=== PATIENT | male | born 1945 | race Caucasian/White ===

== ENCOUNTER 2016-12-22 07:45 | Emergency (ER) | payer BC, MEDICARE ==
--- NOTE | 2016-12-22 09:06 | EDM.PDOC ---
ED HPI GENERAL MEDICAL PROBLEM - General Chief Complaint: Chest Pain Stated Complaint: CHEST PAIN Time Seen by Provider: 12/22/16 07:50 Source of Information: Reports: Patient, Family History Limitations: Reports: No Limitations - History of Present Illness INITIAL COMMENTS - FREE TEXT/NARRATIVE: 71 y.o.w.f came to the ed due to sudden onset of CP this am, lasting for a few seconds only. No N/V/D or any other acute medical issue. No trauma. Pt took 1/2 tabl or his metoprolol. His vital were all nl on arrival to the ed. Pt stated he is now in his usual state of health. Onset: Today Onset Date: 12/22/16 Onset Time: 07:00 Duration: Minutes: (seconds) Location: Reports: Chest Quality: Reports: Burning Severity: Mild Improves with: Reports: Immobilization Worsens with: Reports: Movement Associated Symptoms: Reports: Chest Pain (for seconds) - Related Data Allergies Allergy/AdvReac Type Severity Reaction Status Date / Time bee sting Allergy Swelling Uncoded 12/22/16 08:14 Home Meds: Home Meds NK [No Known Home Meds] 12/22/16 [History] Past Medical History Cardiovascular History: Reports: Other (See Below) Other Cardiovascular History: irregular heart beat Musculoskeletal History: Reports: Other (See Below) Other Musculoskeletal History: stress fx of foot - Past Surgical History GI Surgical History: Reports: Hernia, Inguinal Social & Family History - Tobacco Use Smoking Status *Q: Never Smoker Second Hand Smoke Exposure: No - Caffeine Use Caffeine Use: Reports: Coffee - Recreational Drug Use Recreational Drug Use: No ED ROS GENERAL - Review of Systems Review Of Systems: See Below Constitutional: Reports: No Symptoms HEENT: Reports: No Symptoms Respiratory: Reports: No Symptoms Cardiovascular: Reports: No Symptoms Endocrine: Reports: No Symptoms GI/Abdominal: Reports: No Symptoms : Reports: No Symptoms Musculoskeletal: Reports: No Symptoms Skin: Reports: No Symptoms Neurological: Reports: No Symptoms Psychiatric: Reports: No Symptoms Hematologic/Lymphatic: Reports: No Symptoms Immunologic: Reports: No Symptoms ED EXAM, GENERAL - Physical Exam Exam: See Below Exam Limited By: No Limitations General Appearance: Alert, WD/WN, No Apparent Distress Eye Exam: Bilateral Eye: Normal Inspection Ears: Normal External Exam, Normal Canal Ear Exam: Bilateral Ear: Auricle Normal Nose: Normal Inspection, Normal Mucosa, No Blood Throat/Mouth: Normal Inspection, Normal Lips Head: Atraumatic, Normocephalic, Facial Swelling Neck: Normal Inspection, Supple Respiratory/Chest: No Respiratory Distress, Lungs Clear, Normal Breath Sounds, No Accessory Muscle Use, Chest Non-Tender Cardiovascular: Normal Peripheral Pulses, Regular Rate, Rhythm, No Edema, No Gallop Peripheral Pulses: 1+: Femoral (L), Femoral (R) GI/Abdominal: Normal Bowel Sounds, Soft, Non-Tender, No Organomegaly (Male) Exam: No Hernia Rectal (Males) Exam: Deferred Back Exam: Normal Inspection, Full Range of Motion Extremities: Normal Inspection, Normal Range of Motion, Non-Tender Neurological: Alert, Oriented, CN II-XII Intact, Normal Cognition, Normal Gait Psychiatric: Normal Affect, Normal Mood Skin Exam: Warm, Dry, Intact, Normal Color, No Rash Lymphatic: No Adenopathy EKG INTERPRETATION EKG Date: 12/22/16 Time: 08:10 Rhythm: NSR Rate (Beats/Min): 56 [place]: Normal P-Wave: Present QRS: Normal ST-T: Normal QT: Normal Comparison: NA - No Prior EKG Course - Vital Signs Text/Narrative:: 71 y.o.w.f came to the ed due to sudden onset of CP this am, lasting for a few seconds only. No N/V/D or any other acute medical issue. No trauma. Pt took 1/2 tabl or his metoprolol. His vital were all nl on arrival to the ed. Pt stated he is now in his usual state of health. PE: WNWD w m NAD Labs: Cardiac W/U neg Imaging: NAD Impression: Atypical CP Tx: None Plan: D/C with instructions Last Recorded V/S: Last Vital Signs Temp 36.6 C 12/22/16 07:50 Pulse 61 12/22/16 09:30 Resp 14 12/22/16 09:30 BP 137/86 12/22/16 09:30 Pulse Ox 99 12/22/16 09:30 - Orders/Labs/Meds Labs: Laboratory Tests 12/22/16 12/22/16 12/22/16 Range/Units 08:25 08:25 08:25 WBC 9.1 (4.5-12.0) X10-3/uL RBC 4.34 (4.30-5.75) x10(6)uL Hgb 13.8 (11.5-15.5) g/dL Hct 40.0 (30.0-51.3) % MCV 92.2 (80-96) fL MCH 31.7 (27.7-33.6) pg MCHC 34.4 (32.2-35.4) g/dL RDW 13.3 (11.5-15.5) % Plt Count 227 (125-369) X10(3)uL MPV 8.0 (7.4-10.4) fL Neut % (Auto) 78.0 (46-82) % Lymph % (Auto) 14.0 (13-37) % [place] % (Auto) 6.5 (4-12) % Eos % (Auto) 1 (1.0-5.0) % Baso % (Auto) 0 (0-2) % Neut # (Auto) 7.1 (1.6-8.3) # Lymph # (Auto) 1.3 (0.6-5.0) # [place] # (Auto) 0.6 (0.0-1.3) # Eos # (Auto) 0.1 (0.0-0.8) # Baso # (Auto) 0.0 (0.0-0.2) # PT 9.7 (8.7-11.1) INR 0.96 (0.89-1.13) Sodium 137 (135-145) mmol/L Potassium 4.3 (3.5-5.3) mmol/L Chloride 103 (100-110) mmol/L Carbon Dioxide 28 (23-29) mmol/L BUN 18 (8-23) mg/dL Creatinine 1.0 (0.6-1.3) mg/dL Est Cr Clr Drug Dosing 66.77 mL/min Estimated GFR (MDRD) > 60 (>60) BUN/Creatinine Ratio 18.0 (9-20) Glucose 139 H (80-116) mg/dL Calcium 9.1 (8.6-10.2) mg/dL Troponin I (0.02-0.06) NG/ML B-Natriuretic Peptide (0-100) pg/mL 12/22/16 12/22/16 Range/Units 08:25 08:25 WBC (4.5-12.0) X10-3/uL RBC (4.30-5.75) x10(6)uL Hgb (11.5-15.5) g/dL Hct (30.0-51.3) % MCV (80-96) fL MCH (27.7-33.6) pg MCHC (32.2-35.4) g/dL RDW (11.5-15.5) % Plt Count (125-369) X10(3)uL MPV (7.4-10.4) fL Neut % (Auto) (46-82) % Lymph % (Auto) (13-37) % [place] % (Auto) (4-12) % Eos % (Auto) (1.0-5.0) % Baso % (Auto) (0-2) % Neut # (Auto) (1.6-8.3) # Lymph # (Auto) (0.6-5.0) # [place] # (Auto) (0.0-1.3) # Eos # (Auto) (0.0-0.8) # Baso # (Auto) (0.0-0.2) # PT (8.7-11.1) INR (0.89-1.13) Sodium (135-145) mmol/L Potassium (3.5-5.3) mmol/L Chloride (100-110) mmol/L Carbon Dioxide (23-29) mmol/L BUN (8-23) mg/dL Creatinine (0.6-1.3) mg/dL Est Cr Clr Drug Dosing mL/min Estimated GFR (MDRD) (>60) BUN/Creatinine Ratio (9-20) Glucose (80-116) mg/dL Calcium (8.6-10.2) mg/dL Troponin I < 0.01 L (0.02-0.06) NG/ML B-Natriuretic Peptide 32 (0-100) pg/mL Departure - Departure Time of Disposition: 09:57 Disposition: Home, Self-Care 01 Condition: Good Clinical Impression: Atypical chest pain - Discharge Information Referrals: Jignesh Arana MD [Primary Care Provider] - Forms: ED Department Discharge Additional Instructions: Please follow up with your PMD, come back if your symptoms get worse acutely
[2016-12-22 10:18] VITALS: BP 137/86
--- NOTE | 2016-12-22 10:48 | CR ---
INDICATION: Chest pain. CHEST: An AP upright portable view of the chest was obtained. The heart appeared normal in size and shape. There appears to be some minimal calcification in the arch of the aorta. There are overlying EKG leads. A definite active infiltrate or effusion was not identified. IMPRESSION: No acute process. MTDD
== END 2016-12-22 10:03 | disposition home or self-care (01) ==
LOC: FB.ED 07:45
DX: R07.89 Other chest pain (principal); Z98.890 Other specified postprocedural states; Z91.030 Bee allergy status
CPT/HCPCS: 36415; 71010; 80048; 83880; 84484; 85025; 85610; 93005; 99285

== ENCOUNTER 2018-05-14 21:20 | Emergency (ER) | payer BC ==
[2018-05-14] MEDS ORDERED: Aspirin 81 MG Tab.Chew PO ONE (21:28)
[2018-05-14 21:52] VITALS: BP 156/76
--- NOTE | 2018-05-14 22:59 | EDM.PDOC ---
ED HPI GENERAL MEDICAL PROBLEM - General Chief Complaint: Chest Pain Stated Complaint: CHEST PAIN Time Seen by Provider: 05/14/18 21:20 Source of Information: Reports: Patient, Family History Limitations: Reports: No Limitations - History of Present Illness INITIAL COMMENTS - FREE TEXT/NARRATIVE: 73 y.o.w.min prev healthy condition, with a h/o dizziness, came with is to the ed because of c/p mainly his post left and right shoulder. Occ it moved to ant chest. No trauma, no CAD risc factors, Pt walks every day 2 miles. No N/V/D or any other acute med Issues. BP 156/75 RR 12 Pulse ox 96% on RA Pulse 73 Temp 36.9 Onset Date: 05/13/18 Onset Time: 09:00 Duration: Hour(s):, Day(s):, Intermittent Location: Reports: Chest Quality: Reports: Dull Severity: Mild Improves with: Reports: Rest Worsens with: Reports: Movement Context: Reports: Sick Contact Treatments TRIMMER HELPER: Reports: Other (see below) (none) shoulders and back Pain Score (Numeric/FACES): 1 - Related Data Allergies Allergy/AdvReac Type Severity Reaction Status Date / Time bee sting Allergy Swelling Uncoded 05/14/18 21:41 Home Meds: Home Meds NK [No Known Home Meds] 12/22/16 [History] Past Medical History Cardiovascular History: Reports: Other (See Below) Other Cardiovascular History: irregular heart beat Musculoskeletal History: Reports: Other (See Below) Other Musculoskeletal History: stress fx of foot - Past Surgical History GI Surgical History: Reports: Hernia, Inguinal Social & Family History - Family History Family Medical History: Noncontributory - Tobacco Use Smoking Status *Q: Never Smoker - Caffeine Use Caffeine Use: Reports: Coffee Caffeine Use Comment: 6 cups a day - Recreational Drug Use Recreational Drug Use: No ED ROS GENERAL - Review of Systems Review Of Systems: See Below Constitutional: Reports: No Symptoms HEENT: Reports: No Symptoms Respiratory: Reports: No Symptoms Cardiovascular: Reports: Chest Pain Endocrine: Reports: No Symptoms GI/Abdominal: Reports: No Symptoms : Reports: No Symptoms Musculoskeletal: Reports: No Symptoms Skin: Reports: No Symptoms Neurological: Reports: No Symptoms Psychiatric: Reports: No Symptoms Hematologic/Lymphatic: Reports: No Symptoms Immunologic: Reports: No Symptoms ED EXAM, GENERAL - Physical Exam Exam: See Below Exam Limited By: No Limitations General Appearance: Alert, WD/WN, Mild Distress Eye Exam: Bilateral Eye: Normal Inspection Ears: Normal External Exam Ear Exam: Bilateral Ear: Auricle Normal Nose: Normal Inspection, Normal Mucosa, No Blood Throat/Mouth: Normal Inspection, Normal Lips, Normal Voice, No Airway Compromise Head: Atraumatic, Normocephalic Neck: Normal Inspection, Supple, Non-Tender, Full Range of Motion Respiratory/Chest: No Respiratory Distress, Lungs Clear, Normal Breath Sounds, Chest Non-Tender Cardiovascular: Normal Peripheral Pulses, Regular Rate, Rhythm, No Edema, No Gallop, No JVD, No Murmur, No Rub Peripheral Pulses: 2+: Radial (L) GI/Abdominal: Normal Bowel Sounds, Soft, Non-Tender, No Organomegaly, No Distention, No Abnormal Bruit, No Mass, Pelvis Stable (Male) Exam: Deferred Rectal (Males) Exam: Deferred Back Exam: Normal Inspection, Full Range of Motion Extremities: Normal Inspection, Normal Range of Motion, Non-Tender, No Pedal Edema, Normal Capillary Refill Neurological: Alert, Oriented, CN II-XII Intact, Normal Cognition, Normal Gait, No Motor/Sensory Deficits Psychiatric: Normal Affect, Normal Mood Skin Exam: Warm, Dry, Intact, Normal Color, No Rash Lymphatic: No Adenopathy EKG INTERPRETATION EKG Date: 05/14/18 Time: 21:40 Rhythm: NSR Rate (Beats/Min): 63 [place]: Normal P-Wave: Present QRS: Normal ST-T: Normal QT: Normal Comparison: NA - No Prior EKG Course - Vital Signs Text/Narrative:: 73 y.o.w.min prev healthy condition, with a h/o dizziness, came with is to the ed because of c/p mainly his post left and right shoulder. Occ it moved to ant chest. No trauma, no CAD risckfactors, Pt walks every day 2 miles. No N/V/D or any other acute med Issues. BP 156/75 RR 12 Pulse ox 96% on RA Pulse 73 Temp 36.9 PE: WNWD WM, in NAD c/o chest discomfort and some time dizziness, NL FN and FF test Labs: CBC BMP nl except Glc 123.BUN is 20 Troponin 0.017 Imaging: CXR: NAD Impression: A Typical chest pain, Dizziness, cause not determined Tx: ASA Reexam: Improved Plan: D/C with instructions Last Recorded V/S: Last Vital Signs Temp 36.7 C 05/14/18 23:05 Pulse 73 05/14/18 21:20 Resp 12 05/14/18 21:20 BP 156/76 H 05/14/18 21:20 Pulse Ox 96 05/14/18 21:20 - Orders/Labs/Meds Orders: Active Orders 24 hr Category Date Time Status EKG Documentation Completion [RC] ASDIRECTED Care 05/14/18 21:29 Active Chest 1V Frontal [CR] Stat Exams 05/14/18 21:28 Taken EKG 12 Lead [EK] Routine Ther 05/14/18 21:28 Ordered Labs: Laboratory Tests 05/14/18 05/14/18 05/14/18 Range/Units 21:35 21:35 21:35 WBC 8.5 (4.5-12.0) X10-3/uL RBC 4.49 (4.30-5.75) x10(6)uL Hgb 13.8 (11.5-15.5) g/dL Hct 41.6 (30.0-51.3) % MCV 92.7 (80-96) fL MCH 30.7 (27.7-33.6) pg MCHC 33.2 (32.2-35.4) g/dL RDW 12.4 (11.5-15.5) % Plt Count 256 (125-369) X10(3)uL MPV 8.4 (7.4-10.4) fL Neut % (Auto) 69.0 (46-82) % Lymph % (Auto) 20.6 (13-37) % [place] % (Auto) 8.0 (4-12) % Eos % (Auto) 2 (1.0-5.0) % Baso % (Auto) 1 (0-2) % Neut # (Auto) 5.9 (1.6-8.3) # Lymph # (Auto) 1.7 (0.6-5.0) # [place] # (Auto) 0.7 (0.0-1.3) # Eos # (Auto) 0.2 (0.0-0.8) # Baso # (Auto) 0.0 (0.0-0.2) # PT 9.6 (8.7-11.1) INR 0.99 (0.89-1.13) Sodium 138 (135-145) mmol/L Potassium 3.6 (3.5-5.3) mmol/L Chloride 104 (100-110) mmol/L Carbon Dioxide 26 (21-32) mmol/L BUN 20 H (7-18) mg/dL Creatinine 1.1 (0.70-1.30) mg/dL Est Cr Clr Drug Dosing TNP Estimated GFR (MDRD) > 60 (>60) BUN/Creatinine Ratio 18.2 (9-20) Glucose 128 H (80-116) mg/dL Calcium 8.7 (8.6-10.2) mg/dL Troponin I (<0.017-0.056) ng/mL 05/14/18 Range/Units 21:35 WBC (4.5-12.0) X10-3/uL RBC (4.30-5.75) x10(6)uL Hgb (11.5-15.5) g/dL Hct (30.0-51.3) % MCV (80-96) fL MCH (27.7-33.6) pg MCHC (32.2-35.4) g/dL RDW (11.5-15.5) % Plt Count (125-369) X10(3)uL MPV (7.4-10.4) fL Neut % (Auto) (46-82) % Lymph % (Auto) (13-37) % [place] % (Auto) (4-12) % Eos % (Auto) (1.0-5.0) % Baso % (Auto) (0-2) % Neut # (Auto) (1.6-8.3) # Lymph # (Auto) (0.6-5.0) # [place] # (Auto) (0.0-1.3) # Eos # (Auto) (0.0-0.8) # Baso # (Auto) (0.0-0.2) # PT (8.7-11.1) INR (0.89-1.13) Sodium (135-145) mmol/L Potassium (3.5-5.3) mmol/L Chloride (100-110) mmol/L Carbon Dioxide (21-32) mmol/L BUN (7-18) mg/dL Creatinine (0.70-1.30) mg/dL Est Cr Clr Drug Dosing Estimated GFR (MDRD) (>60) BUN/Creatinine Ratio (9-20) Glucose (80-116) mg/dL Calcium (8.6-10.2) mg/dL Troponin I < 0.017 L (<0.017-0.056) ng/mL Meds: Medications Discontinued Medications Generic Name Dose Route Start Last Admin Trade Name Ravi PRN Reason Stop Dose Admin Aspirin 324 mg 05/14/18 21:28 05/14/18 21:30 Aspirin PO 05/14/18 21:29 324 mg ONETIME ONE Administration Departure - Departure Time of Disposition: 22:56 Disposition: Home, Self-Care 01 Condition: Good Clinical Impression: Atypical chest pain Instructions: Nonspecific Chest Pain, [id number] Referrals: Jignesh Arana MD [Primary Care Provider] - Forms: ED Department Discharge Additional Instructions: Please take Motrin for pain, please increase water intake, please f/u with your PMD. Please come back if your symptoms get worse acutely - My Orders Last 24 Hours: My Active Orders 05/14/18 21:28 Chest 1V Frontal [CR] Stat EKG 12 Lead [EK] Routine 05/14/18 21:29 EKG Documentation Completion [RC] ASDIRECTED - Assessment/Plan Last 24 Hours: My Active Orders 05/14/18 21:28 Chest 1V Frontal [CR] Stat EKG 12 Lead [EK] Routine 05/14/18 21:29 EKG Documentation Completion [RC] ASDIRECTED
--- NOTE | 2018-05-15 12:38 | CR ---
INDICATION: Chest pain. CHEST ONE VIEW: AP upright portable view of the chest was obtained on 05/14/18 and compared with 12/22/16 revealing an appearance suggesting increased heart size on the current study. Overlying EKG leads are noted. A mild dextroconvex scoliosis of the upper middle thoracic spine is noted. A definite active infiltrate or effusion was not identified. IMPRESSION: Probable ASHD with possible increase in heart size compared with previous study. MTDD
== END 2018-05-14 23:05 | disposition home or self-care (01) ==
LOC: FB.ED 21:20
DX: R07.89 Other chest pain (principal); R42 Dizziness and giddiness; Z91.030 Bee allergy status
CPT/HCPCS: 36415; 71045; 80048; 84484; 85025; 85610; 93005; 99285; A9270

== ENCOUNTER 2018-10-04 18:12 | Inpatient (IN) | payer MEDICARE, BC ==
[2018-10-04] MEDS ORDERED: Acetaminophen 500 MG Tab PO ONE (18:30)
--- NOTE | 2018-10-04 18:52 | EDM.PDOC ---
ED HPI GENERAL MEDICAL PROBLEM - General Chief Complaint: Fever Stated Complaint: DIZZY Time Seen by Provider: 10/04/18 18:35 Source of Information: Reports: Patient History Limitations: Reports: No Limitations - History of Present Illness INITIAL COMMENTS - FREE TEXT/NARRATIVE: Patient presents today with his with concerns for feeling lightheaded, has fallen a couple times today, his notes that maybe he was confused at one point. He reports that he has been feeling unwell for the past couple of days, thought he maybe overdid it in the garage 3 days ago. Slight decrease in appetite as well. Today at home was noted to have a fever of 101, also has a fever on arrival here. He is otherwise sitting up and able to give me a complete history. That yesterday he had some acute onset low back pain across the back of his hips and in the SI joint area. He has not noticed pain like this before, but again thought it was from working in his garage. He has been constipated recently, and noted that his urine smelled funny and he has been drinking more water the last couple of days. He has had no cough, some nasal congestion and wondered if he might have a sinus infection, but right now no headache, no pain in his ears, no sore throat. He does not feel short of breath, although was lightheaded and went forward down onto the floor 2-3 times today (did not tell his ). No known exposure to ticks, hasn't spent any problems time outside. Generally healthy, takes 12.5 of metoprolol twice daily for blood pressure and states there was maybe an arrhythmia a number of years ago. Also takes a baby aspirin as well as a vitamin. No history of diabetes, COPD, or any other heart problems. Nonsmoker, no alcohol use, no drug use. Lower back Pain Score (Numeric/FACES): 4 - Related Data Allergies Allergy/AdvReac Type Severity Reaction Status Date / Time bee sting Allergy Swelling Uncoded 10/04/18 18:27 Home Meds: Home Meds Aspirin [Ecotrin EC] 81 mg PO DAILY 10/04/18 [History] Metoprolol Tartrate [Lopressor] 12.5 mg PO BID 10/04/18 [History] Multivitamin [Multivitamins] 1 each PO DAILY 10/04/18 [History] Rosuvastatin [Crestor] 10 mg PO BEDTIME 10/04/18 [History] Past Medical History Cardiovascular History: Reports: High Cholesterol, Hypertension Other Cardiovascular History: irregular heart beat Musculoskeletal History: Reports: Osteoarthritis, Other (See Below) Other Musculoskeletal History: stress fx of foot - Infectious Disease History Infectious Disease History: Reports: Chicken Pox, Measles, Mumps - Past Surgical History HEENT Surgical History: Reports: Cataract Surgery GI Surgical History: Reports: Hernia, Inguinal Musculoskeletal Surgical History: Reports: None Social & Family History - Family History Family Medical History: Noncontributory Cardiac: Reports: CAD Endocrine/Metabolic: Reports: Diabetes, type II - Tobacco Use Smoking Status *Q: Never Smoker - Caffeine Use Caffeine Use: Reports: Coffee, Soda Caffeine Use Comment: 6 cups a day - Alcohol Use Alcohol Use History: No - Recreational Drug Use Recreational Drug Use: No - Living Situation & Occupation Living situation: Reports: Occupation: Retired ED ROS GENERAL - Review of Systems Review Of Systems: See Below Constitutional: Reports: Fever, Chills, Malaise, Weakness, Fatigue HEENT: Reports: Rhinitis. Denies: Ear Pain, Eye Pain, Sinus Problem, Throat Pain Respiratory: Denies: Shortness of Breath, Wheezing, Pleuritic Chest Pain, Cough Cardiovascular: Reports: Lightheadedness. Denies: Chest Pain, Dyspnea on Exertion, Palpitations Endocrine: Reports: Fatigue GI/Abdominal: Reports: Constipation, Decreased Appetite. Denies: Abdominal Pain , Black Stool, Diarrhea, Vomiting : Reports: Frequency. Denies: Discharge, Flank Pain, Urgency Musculoskeletal: Reports: Back Pain Skin: Denies: Rash, Wound Neurological: Denies: Headache, Numbness, Tingling, Weakness, Gait Disturbance Psychiatric: Reports: No Symptoms Hematologic/Lymphatic: Reports: Easy Bruising. Denies: Easy Bleeding ED EXAM, GENERAL - Physical Exam Exam: See Below Free Text/Narrative:: Gen.: Alert, extremely pleasant and does not appear toxic or in acute distress. Tympanic members are clear bilaterally with normal light reflex and there is no mastoid tenderness. Throat is without erythema, mucous murmurs are moist and there is no tonsillar enlargement or exudates. No cervical lymphadenopathy and no sinus tenderness. Neck is freely movable. Pupils are equal and reactive and conjunctiva are clear. Heart is regular rate and rhythm and I do not hear murmur , lungs are clear throughout with very minimal amount of expiratory wheeze at the very end of expiration. No costovertebral angle tenderness, no midline spinous process tenderness, vague pain in SI joint area. Abdomen positive bowel sounds, soft nondistended nontender with only very slight discomfort in palpation in the left lower quadrant. Peripheral pulses +2 and there is no lower extremity edema. Strength is equal bilaterally and he has relatively normal sensation, gait is normal. A few bruises noted on his arms, but no open lesions or wounds. No joint swelling. Course - Vital Signs Text/Narrative:: Initial evaluation completed, sepsis labs drawn, will have nursing place a saline lock. Fever of 101 and slightly elevated respiratory rate but otherwise nontoxic appearing and not diaphoretic. Only focal symptom is possibly urine and some vague low back pain, and fatigue. Lungs clear, no headache, no obvious URI symptoms, abdomen soft nontender. Labs ordered as well as urinalysis, blood cultures drawn. call received from lab regarding urinalysis meeting criteria for culture, + nitrates, + leukocyte esterace. Also called regarding CRP 22.6. Rest of labs still pending. Last Recorded V/S: Last Vital Signs Temp 38.8 C H 10/04/18 18:14 Pulse 106 H 10/04/18 18:14 Resp 26 H 10/04/18 18:14 BP 120/70 10/04/18 18:14 Pulse Ox 98 10/04/18 18:14 - Orders/Labs/Meds Orders: Active Orders 24 hr Category Date Time Status CBC WITH AUTO DIFF [HEME] Routine Lab 10/04/18 18:30 Results CULTURE BLOOD [BC] Urgent Lab 10/04/18 18:30 Received CULTURE BLOOD [BC] Urgent Lab 10/04/18 18:35 Received cefTRIAXone [Rocephin] Med 10/04/18 19:15 Ordered 1 gm IVPUSH Q24H Blood Culture x2 Reflex Set [OM.PC] Urgent Oth 10/04/18 18:30 Ordered Labs: Laboratory Tests 10/04/18 10/04/18 10/04/18 Range/Units 18:29 18:30 18:30 WBC 17.4 H (4.5-12.0) X10-3/uL RBC 4.27 L (4.30-5.75) x10(6)uL Hgb 13.4 L (13.5-17.8) g/dL Hct 39.3 (30.0-51.3) % MCV 92.1 (80-96) fL MCH 31.4 (27.7-33.6) pg MCHC 34.1 (32.2-35.4) g/dL RDW 13.4 (11.5-15.5) % Plt Count 174 (125-369) X10(3)uL MPV 8.7 (7.4-10.4) fL Add Manual Diff Yes Sodium 135 (135-145) mmol/L Potassium 4.0 (3.5-5.3) mmol/L Chloride 99 L D (100-110) mmol/L Carbon Dioxide 22 (21-32) mmol/L BUN 22 H (7-18) mg/dL Creatinine 1.3 (0.70-1.30) mg/dL Est Cr Clr Drug Dosing 48.23 mL/min Estimated GFR (MDRD) 54 L (>60) BUN/Creatinine Ratio 16.9 (9-20) Glucose 168 H (80-116) mg/dL Lactic Acid (0.4-2.2) mmol/L Calcium 9.0 (8.6-10.2) mg/dL Total Bilirubin 1.3 (0.1-1.3) mg/dL AST 28 H (5-25) IU/L ALT 39 H (12-36) U/L Alkaline Phosphatase 97 (56-112) IU/L C-Reactive Protein (0.5-0.9) mg/dL Total Protein 7.3 (6.0-8.0) g/dL Albumin 3.1 L (3.2-4.6) g/dL Globulin 4.2 g/dL Albumin/Globulin Ratio 0.7 Urine Color [place] (YELLOW) Urine Appearance Cloudy (CLEAR) Urine pH 5.0 (5.0-6.5) Ur Specific [place] 1.020 (1.010-1.025) Urine Protein 30 H (NEGATIVE) mg/dL Urine Glucose (UA) Normal (NORMAL) mg/dL Urine Ketones 15 H (NEGATIVE) mg/dL Urine Occult Blood Large H (NEGATIVE) Urine Nitrite Positive H (NEGATIVE) Urine Bilirubin Small H (NEGATIVE) Urine Urobilinogen 8 H (NEGATIVE) mg/dL Ur Leukocyte Esterase Large H (NEGATIVE) Urine RBC >100 H (0-5) Urine WBC >100 H (0-5) Ur Squamous Epith Cells Few H (NS,R,O) Urine Bacteria Many H (NS) 10/04/18 10/04/18 Range/Units 18:30 18:30 WBC (4.5-12.0) X10-3/uL RBC (4.30-5.75) x10(6)uL Hgb (13.5-17.8) g/dL Hct (30.0-51.3) % MCV (80-96) fL MCH (27.7-33.6) pg MCHC (32.2-35.4) g/dL RDW (11.5-15.5) % Plt Count (125-369) X10(3)uL MPV (7.4-10.4) fL Add Manual Diff Sodium (135-145) mmol/L Potassium (3.5-5.3) mmol/L Chloride (100-110) mmol/L Carbon Dioxide (21-32) mmol/L BUN (7-18) mg/dL Creatinine (0.70-1.30) mg/dL Est Cr Clr Drug Dosing mL/min Estimated GFR (MDRD) (>60) BUN/Creatinine Ratio (9-20) Glucose (80-116) mg/dL Lactic Acid 1.7 (0.4-2.2) mmol/L Calcium (8.6-10.2) mg/dL Total Bilirubin (0.1-1.3) mg/dL AST (5-25) IU/L ALT (12-36) U/L Alkaline Phosphatase (56-112) IU/L C-Reactive Protein 22.6 H* (0.5-0.9) mg/dL Total Protein (6.0-8.0) g/dL Albumin (3.2-4.6) g/dL Globulin g/dL Albumin/Globulin Ratio Urine Color (YELLOW) Urine Appearance (CLEAR) Urine pH (5.0-6.5) Ur Specific [place] (1.010-1.025) Urine Protein (NEGATIVE) mg/dL Urine Glucose (UA) (NORMAL) mg/dL Urine Ketones (NEGATIVE) mg/dL Urine Occult Blood (NEGATIVE) Urine Nitrite (NEGATIVE) Urine Bilirubin (NEGATIVE) Urine Urobilinogen (NEGATIVE) mg/dL Ur Leukocyte Esterase (NEGATIVE) Urine RBC (0-5) Urine WBC (0-5) Ur Squamous Epith Cells (NS,R,O) Urine Bacteria (NS) Meds: Medications Discontinued Medications Generic Name Dose Route Start Last Admin Trade Name Ravi PRN Reason Stop Dose Admin Acetaminophen 1,000 mg 10/04/18 18:30 10/04/18 18:40 Tylenol Extra Strength PO 10/04/18 18:31 1,000 mg ONETIME ONE Administration - Re-Assessments/Exams Free Text/Narrative Re-Assessment/Exam: 10/04/18 18:59 ordered 1gm ceftriaxone for presumed UTI based on urine. sign out given to oncoming physician Dr. Holland. rest of labs still pending; may or may not need admission. 10/04/18 19:00 10/04/18 19:04 10/04/18 19:06 Departure - Departure Time of Disposition: 19:06 Disposition: Still A Patient 30 Condition: Undetermined Clinical Impression: Febrile urinary tract infection - Discharge Information *PRESCRIPTION DRUG MONITORING PROGRAM REVIEWED*: Not Applicable *COPY OF PRESCRIPTION DRUG MONITORING REPORT IN PATIENT BRIGIDO: Not Applicable - My Orders Last 24 Hours: My Active Orders 10/04/18 18:30 CBC WITH AUTO DIFF [HEME] Routine CULTURE BLOOD [BC] Urgent Blood Culture x2 Reflex Set [OM.PC] Urgent 10/04/18 18:35 CULTURE BLOOD [BC] Urgent 10/04/18 19:15 cefTRIAXone [Rocephin] 1 gm IVPUSH Q24H - Assessment/Plan Last 24 Hours: My Active Orders 10/04/18 18:30 CBC WITH AUTO DIFF [HEME] Routine CULTURE BLOOD [BC] Urgent Blood Culture x2 Reflex Set [OM.PC] Urgent 10/04/18 18:35 CULTURE BLOOD [BC] Urgent 10/04/18 19:15 cefTRIAXone [Rocephin] 1 gm IVPUSH Q24H
[2018-10-04] MEDS ORDERED: cefTRIAXone 1 GM Vial IVPUSH SCH (19:15)
[2018-10-04] MEDS ORDERED: Sodium Chloride 0.9% 10 ML Syringe FLUSH PRN (19:33)
[2018-10-04] MEDS ORDERED: Metoprolol Tartrate 25 MG Tab PO STA (21:18)
[2018-10-04] MEDS ORDERED: Rosuvastatin 10 MG Tab PO ONE (21:20)
[2018-10-04] MEDS ORDERED: Metoprolol Tartrate 25 MG Tab*PT OWN MED PO ONE (21:45)
[2018-10-05] MEDS: Acetaminophen 325 MG Tab PO PRN (06:33)
[2018-10-05] MEDS: ceFAZolin 2 GM in Premix Bag 1 BAG IV SCH ×2 (09:34→18:30)
[2018-10-05] MEDS: Metoprolol Tartrate 25 MG Tab PO SCH ×2 (10:23→21:37)
--- NOTE | 2018-10-05 11:29 | HP ---
ADMISSION DATE: 10/05/2018 HISTORY OF PRESENT ILLNESS: Serafin Sandoval is a 73-year-old male, admitted through the ER. Was in reasonable health until yesterday. Got up in the morning, felt to be a little constipated; went for a walk; did some work in the shop; vague back pain. Then went for his routine daily walk. Had fever, chills, sweats. Had a couple episodes where he collapsed due to weakness; did not feel lightheaded, dizzy, or woozy, but felt poorly. Indeed also is a little bit disoriented with his travel. Increasing symptoms resulted in the ER visit. Was seen in the ER, seen by Dr. Holland. He was found to have UTI, suspicion for sepsis; appropriate cultures were obtained; admitted to the hospital for treatment. Had been given 1 g of ceftriaxone q.24 hours. Feeling a little better this morning. DAILY MEDICATIONS: 1. Aspirin 81 mg 1 daily. 2. Multivitamin. 3. Metoprolol 12.5 mg b.i.d., heart. 4. Crestor 10 mg 1 p.o. daily, hyperlipidemia. ALLERGIES: Questionable allergy to bees. PAST MEDICAL HISTORY: Significant for previous right herniorrhaphy. History of treated hypertension and treated hyperlipidemia. Has had a remote ankle fracture. No other operative procedures, hospitalizations, unusual childhood diseases, major injuries or fractures. SOCIAL HISTORY: Lived in [place] most of his life, has been in [place] for 10 years, moved because his daughter is in the area. Worked at the [employer]. in good health; 4 children, 2 boys, 2 girls; 9 grandchildren. Nonsmoker. No alcohol consumption or illicit drug use. FAMILY HISTORY: Negative for early heart disease, diabetes mellitus, or inheritable cancers. REVIEW OF SYSTEMS: CONSTITUTIONAL: Doing generally well. EYES: Sees well. EARS: Decreased hearing, difficulty in crowds. OROPHARYNX: Intact dentition. GASTROINTESTINAL: Bowel has been a little bit reluctant, no blood in stool. GENITOURINARY: Voids without difficulty. Nocturia x2. CARDIOVASCULAR: Denies chest pain, palpitations, or syncope. RESPIRATORY: No chronic cough. SKIN: No lesions, eruptions, or moles. ENDOCRINE: No excessive thirst or urination. ALLERGIC: No chronic cough. PSYCHIATRIC: Mood stable. ORTHOPEDIC: Generalized joint complaints. PHYSICAL EXAMINATION: VITAL SIGNS: 37.1, 65, 116/63, 16, and 99% on room air. GENERAL: A young man, cooperative, conversant, white haired, fair complexion. HEENT: Funduscopic benign. Conjunctivae clear. Bright tympanic membranes. Clear nasal discharge. Mouth and oropharynx clear. Fair dentition. Tongue midline. Good gag reflex. NECK: Benign. Thyroid small. No adenopathy. CHEST: Clear in all lung ayoub. No adventitious sounds. HEART: On auscultation, no ectopy or murmur. Telemetry in place. ABDOMEN: Benign, lower abdominal herniorrhaphy scar. GENITOURINARY: Uncircumcised male. Testes descended. No intrascrotal masses. RECTAL: Deferred. EXTREMITIES: Well perfused. SKIN: No rash. LABORATORY STUDIES: White count 17,400, hemoglobin 13.4. Electrolytes satisfactory. BUN 22, creatinine 1.3, GFR 54. Liver enzymes slightly elevated, though mildly so. Magnesium 1.5, (normal 1.8 to 2.4). Electrolytes satisfactory. Urine markedly abnormal. ASSESSMENT: Urosepsis with weakness. SECONDARY DIAGNOSES: 1. Hypertension. 2. Hyperlipidemia. 3. Herniorrhaphy. 4. Benign prostatic hyperplasia. PLAN: Meds on board timely and appropriate, antibiotics as indicated, expect short hospital stay. /[id number] /ABNER
--- NOTE | 2018-10-05 11:38 | HP ---
ADMISSION DATE: 10/05/2018 ADDENDUM: Mr. Sandoval was admitted with complicated fever, couple episodes of near syncopal fall, hydration appears to be improving. Intravenous antibiotics are required, given the evidence of pyelonephritis. /[id number] MICAELA/ABNER
[2018-10-05] MEDS ORDERED: Rosuvastatin 10 MG Tab PO SCH (21:00)
[2018-10-06] MEDS: ceFAZolin 2 GM in Premix Bag 1 BAG IV SCH (02:04)
[2018-10-06] MEDS ORDERED: hydrOXYzine HCl 25 MG Tab PO PRN (02:07)
[2018-10-06] MEDS: Acetaminophen 325 MG Tab PO PRN (02:42)
--- NOTE | 2018-10-06 08:32 | PCM.PN ---
- General Info Date of Service: 10/06/18 Admission Dx/Problem (Free Text): Patient states he had some sweats last night. All in all he feels better. He denies dizziness or lightheadedness. He has some dysuria this morning. No back pain. He does have some suprapubic pain. - Patient Data Vitals - Most Recent: Last Vital Signs Temp 98 F 10/06/18 04:00 Pulse 70 10/06/18 04:00 Resp 18 10/06/18 04:00 BP 138/65 10/06/18 04:00 Pulse Ox 99 10/06/18 04:00 Weight - Most Recent: 199 lb 3.2 oz I&O - Last 24 Hours: Intake & Output 10/05/18 10/06/18 10/06/18 22:59 06:59 14:59 Intake Total 50 Balance 50 Daniel Results Last 24 Hours: Microbiology 10/04/18 18:35 Aerobic Blood Culture - Preliminary Blood - Venous - Lab Draw NO GROWTH AFTER 1 DAY Anaerobic Blood Culture - Preliminary NO GROWTH AFTER 1 DAY 10/04/18 18:30 Aerobic Blood Culture - Preliminary Blood - Venous NO GROWTH AFTER 1 DAY Anaerobic Blood Culture - Preliminary NO GROWTH AFTER 1 DAY 10/04/18 18:29 Urine Culture - Preliminary Urine, Voided Gram Negative Rods Med Orders - Current: Current Medications Acetaminophen (Tylenol) 650 mg PO Q4H PRN PRN Reason: pain, fever Last Admin: 10/06/18 02:42 Dose: 650 mg Enoxaparin Sodium (Lovenox) 30 mg SUBCUT Q24H [facility] Finasteride (Proscar) 5 mg PO BEDTIME [facility] Hydroxyzine HCl (Atarax) 25 mg PO BEDTIME PRN PRN Reason: Insomnia Last Admin: 10/06/18 02:42 Dose: 25 mg Cefazolin Sodium/Dextrose 2 gm (/ Premix) 50 mls @ 100 mls/hr IV Q8H [facility] Last Admin: 10/06/18 02:04 Dose: 100 mls/hr Metoprolol Tartrate (Lopressor) 12.5 mg PO BID [facility] Last Admin: 10/05/18 21:37 Dose: 12.5 mg Sodium Chloride (Saline Flush) 10 ml FLUSH ASDIRECTED PRN PRN Reason: Keep Vein Open Last Admin: 10/06/18 02:04 Dose: 10 ml Tamsulosin HCl (Flomax) 0.4 mg PO PCBREAKFAST [facility] Discontinued Medications Acetaminophen (Tylenol Extra Strength) 1,000 mg PO ONETIME ONE Stop: 10/04/18 18:31 Last Admin: 10/04/18 18:40 Dose: 1,000 mg Ceftriaxone Sodium (Rocephin) 1 gm IVPUSH Q24H [facility] Last Admin: 10/04/18 19:16 Dose: 1 gm Metoprolol Tartrate (Lopressor) 12.5 mg PO BID [facility] Stop: 10/04/18 21:19 Last Admin: 10/04/18 21:58 Dose: Not Given Metoprolol Tartrate (Lopressor) 12.5 mg PO ONETIME ONE Stop: 10/04/18 21:46 Last Admin: 10/04/18 21:50 Dose: 12.5 mg Rosuvastatin Calcium (Crestor) 10 mg PO BEDTIME [facility] Rosuvastatin Calcium (Crestor) 10 mg PO ONETIME ONE Stop: 10/04/18 21:21 Last Admin: 10/04/18 21:58 Dose: Not Given Rosuvastatin Calcium (Crestor) 10 mg PO ONETIME ONE Stop: 10/04/18 21:46 Last Admin: 10/04/18 21:50 Dose: 10 mg - Exam General: Alert, Oriented, Cooperative Lungs: Normal Respiratory Effort GI/Abdominal Exam: Tender (Diffuse). No: Guarding, Rigid, Rebound, Mass Extremities: No Pedal Edema - Problem List & Annotations (1) Pyelonephritis SNOMED Code(s): 26797573 Code(s): N12 - TUBULO-INTERSTITIAL NEPHRITIS, NOT SPCF ACUTE OR CHRONIC Status: Acute Current Visit: Yes (2) Palliative care status SNOMED Code(s): 133186807 Code(s): Z51.5 - ENCOUNTER FOR PALLIATIVE CARE Status: Acute Current Visit: Yes (3) BPH (benign prostatic hyperplasia) SNOMED Code(s): 034753495 Code(s): N40.0 - BENIGN PROSTATIC HYPERPLASIA WITHOUT LOWER URINRY TRACT SYMP Status: Acute Current Visit: Yes - Problem List Review Problem List Initiated/Reviewed/Updated: Yes - My Orders Last 24 Hours: My Active Orders 10/06/18 08:22 CBC WITH AUTO DIFF [HEME] Routine 10/06/18 08:30 Enoxaparin [Lovenox] 30 mg SUBCUT Q24H 10/06/18 09:00 Tamsulosin [Flomax] 0.4 mg PO PCBREAKFAST 10/06/18 21:00 Finasteride [Proscar] 5 mg PO BEDTIME - Plan Plan:: 1. Lovenox for VTE prophylaxis 2. Chest x-ray reviewed wait for radiology interpretation 3. DC telemetry 4. Patient grew out gram negative rods. Waiting for identification and sensitivity. Continue IV antibiotics 5. Up ad zully. 6. CBC 7. Flomax and Proscar for BPH.
[2018-10-06] MEDS: Metoprolol Tartrate 25 MG Tab PO SCH ×2 (08:55→21:14)
[2018-10-06] MEDS: Tamsulosin 0.4 MG Cap.ER PO SCH (10:01)
[2018-10-06] MEDS: Enoxaparin 40 MG/0.4 ML Syringe SUBCUT SCH (10:04)
[2018-10-06] MEDS: cefTRIAXone 1 GM Vial IVPUSH SCH (10:09)
--- NOTE | 2018-10-06 11:28 | CR ---
INDICATION: Short of breath, decreasing breath sounds right lower lung. CHEST: Two PA views and a lateral view of the chest were obtained 10/06/18 and compared with 05/14/18 and 12/22/16. Overlying EKG leads are noted. The heart is normal in size and shape. There is some calcification in the arch of the aorta. Flattened diaphragm leaves with mildly prominent AP diameter and hyperaeration all suggest COPD. Nodular density at the right lung base most likely represents nipple shadow. Active infiltrate or effusion was not identified. Moderate degenerative changes are noted with hypertrophic lipping anteriorly off vertebral bodies in the mid thoracic spine. IMPRESSION: 1. No definite acute process. 2. 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 MTDD
[2018-10-06] MEDS ORDERED: Finasteride 5 MG Tab PO SCH (21:00)
--- NOTE | 2018-10-07 07:43 | PCM.PN ---
- General Info Date of Service: 10/07/18 Admission Dx/Problem (Free Text): Patient states he didn't sleep very well had some mild night sweats. He has some urinary urgency but no dysuria, pyuria, hematuria, nausea, vomiting or back pain. No dizziness either. - Patient Data Vitals - Most Recent: Last Vital Signs Temp 99.4 F 10/07/18 01:00 Pulse 92 10/07/18 01:00 Resp 18 10/07/18 01:00 BP 130/70 10/07/18 01:00 Pulse Ox 93 L 10/07/18 01:00 Weight - Most Recent: 199 lb 3.2 oz Lab Results Last 24 Hours: Laboratory Results - last 24 hr 10/06/18 Range/Units 08:38 WBC 7.9 (4.5-12.0) X10-3/uL RBC 3.99 L (4.30-5.75) x10(6)uL Hgb 12.3 L (13.5-17.8) g/dL Hct 36.4 (30.0-51.3) % MCV 91.1 (80-96) fL MCH 30.7 (27.7-33.6) pg MCHC 33.7 (32.2-35.4) g/dL RDW 13.4 (11.5-15.5) % Plt Count 165 (125-369) X10(3)uL MPV 8.2 (7.4-10.4) fL Neut % (Auto) 80.4 (46-82) % Lymph % (Auto) 9.8 L (13-37) % [place] % (Auto) 8.9 (4-12) % Eos % (Auto) 1 (1.0-5.0) % Baso % (Auto) 0 (0-2) % Neut # (Auto) 6.3 (1.6-8.3) # Lymph # (Auto) 0.8 (0.6-5.0) # [place] # (Auto) 0.7 (0.0-1.3) # Eos # (Auto) 0.1 (0.0-0.8) # Baso # (Auto) 0.0 (0.0-0.2) # Daniel Results Last 24 Hours: Microbiology 10/04/18 18:29 Urine Culture - Final Urine, Voided Escherichia Coli 10/04/18 18:35 Aerobic Blood Culture - Preliminary Blood - Venous - Lab Draw NO GROWTH AFTER 2 DAYS Anaerobic Blood Culture - Preliminary NO GROWTH AFTER 2 DAYS 10/04/18 18:30 Aerobic Blood Culture - Preliminary Blood - Venous NO GROWTH AFTER 2 DAYS Anaerobic Blood Culture - Preliminary NO GROWTH AFTER 2 DAYS Med Orders - Current: Current Medications Acetaminophen (Tylenol) 650 mg PO Q4H PRN PRN Reason: pain, fever Last Admin: 10/06/18 02:42 Dose: 650 mg Ceftriaxone Sodium (Rocephin) 1 gm IVPUSH Q24H [facility] Last Admin: 10/06/18 10:09 Dose: 1 gm Enoxaparin Sodium (Lovenox) 40 mg SUBCUT DAILY [facility] Last Admin: 10/06/18 10:04 Dose: 40 mg Finasteride (Proscar) 5 mg PO BEDTIME [facility] Last Admin: 10/06/18 21:14 Dose: 5 mg Hydroxyzine HCl (Atarax) 25 mg PO BEDTIME PRN PRN Reason: Insomnia Last Admin: 10/06/18 02:42 Dose: 25 mg Metoprolol Tartrate (Lopressor) 12.5 mg PO BID [facility] Last Admin: 10/06/18 21:14 Dose: 12.5 mg Sodium Chloride (Saline Flush) 10 ml FLUSH ASDIRECTED PRN PRN Reason: Keep Vein Open Last Admin: 10/06/18 02:04 Dose: 10 ml Tamsulosin HCl (Flomax) 0.4 mg PO PCBREAKFAST [facility] Last Admin: 10/06/18 10:01 Dose: 0.4 mg Discontinued Medications Acetaminophen (Tylenol Extra Strength) 1,000 mg PO ONETIME ONE Stop: 10/04/18 18:31 Last Admin: 10/04/18 18:40 Dose: 1,000 mg Ceftriaxone Sodium (Rocephin) 1 gm IVPUSH Q24H [facility] Last Admin: 10/04/18 19:16 Dose: 1 gm Cefazolin Sodium/Dextrose 2 gm (/ Premix) 50 mls @ 100 mls/hr IV Q8H [facility] Last Admin: 10/06/18 02:04 Dose: 100 mls/hr Metoprolol Tartrate (Lopressor) 12.5 mg PO BID [facility] Stop: 10/04/18 21:19 Last Admin: 10/04/18 21:58 Dose: Not Given Metoprolol Tartrate (Lopressor) 12.5 mg PO ONETIME ONE Stop: 10/04/18 21:46 Last Admin: 10/04/18 21:50 Dose: 12.5 mg Rosuvastatin Calcium (Crestor) 10 mg PO BEDTIME [facility] Rosuvastatin Calcium (Crestor) 10 mg PO ONETIME ONE Stop: 10/04/18 21:21 Last Admin: 10/04/18 21:58 Dose: Not Given Rosuvastatin Calcium (Crestor) 10 mg PO ONETIME ONE Stop: 10/04/18 21:46 Last Admin: 10/04/18 21:50 Dose: 10 mg - Exam General: Alert, Oriented, Cooperative Lungs: Normal Respiratory Effort - Problem List & Annotations (1) Pyelonephritis SNOMED Code(s): 86117591 Code(s): N12 - TUBULO-INTERSTITIAL NEPHRITIS, NOT SPCF ACUTE OR CHRONIC Status: Acute Current Visit: Yes (2) Palliative care status SNOMED Code(s): 509216398 Code(s): Z51.5 - ENCOUNTER FOR PALLIATIVE CARE Status: Acute Current Visit: Yes (3) BPH (benign prostatic hyperplasia) SNOMED Code(s): 532474031 Code(s): N40.0 - BENIGN PROSTATIC HYPERPLASIA WITHOUT LOWER URINRY TRACT SYMP Status: Acute Current Visit: Yes - Problem List Review Problem List Initiated/Reviewed/Updated: Yes - My Orders Last 24 Hours: My Active Orders 10/06/18 08:35 Up ad Maira [RC] ASDIRECTED 10/06/18 09:00 Enoxaparin [Lovenox] 40 mg SUBCUT DAILY Tamsulosin [Flomax] 0.4 mg PO PCBREAKFAST 10/06/18 10:00 cefTRIAXone [Rocephin] 1 gm IVPUSH Q24H 10/06/18 21:00 Finasteride [Proscar] 5 mg PO BEDTIME - Plan Plan:: 1. Culture grew out Escherichia coli. Send home on Levaquin by mouth. 2. Pharmacy to dose Levaquin.
--- NOTE | 2018-10-07 08:06 | PCM.DCSUM1 ---
Discharge Summary - Hospital Course Free Text/Narrative:: Hospital course-patient's initial white count was 17,000. He was started on IV antibiotics. Patient had night sweats the first night in his culture grew gram negative rods. Was also given a gram of Rocephin in the ER also. Next day his white count was down the proximal lay 7000. He's put on Levaquin 1 g every 24 the other antibiotic was stopped. Patient did well and grew out Escherichia coli and sensitivities were evaluated. Patients symptoms improved. He had no dysuria, pyuria, hematuria. He has some urinary frequency. He had back pain and nausea when he came in that abated. His dizziness and weakness stop. Brief History: Patient presents today with his with concerns for feeling lightheaded, has fallen a couple times today, his notes that maybe he was confused at one point. He reports that he has been feeling unwell for the past couple of days, thought he maybe overdid it in the garage 3 days ago. Slight decrease in appetite as well. Today at home was noted to have a fever of 101, also has a fever on arrival here. He is otherwise sitting up and able to give me a complete history. That yesterday he had some acute onset low back pain across the back of his hips and in the SI joint area. He has not noticed pain like this before, but again thought it was from working in his garage. He has been constipated recently, and noted that his urine smelled funny and he has been drinking more water the last couple of days. He has had no cough, some nasal congestion and wondered if he might have a sinus infection, but right now no headache, no pain in his ears, no sore throat. He does not feel short of breath, although was lightheaded and went forward down onto the floor 2-3 times today (did not tell his ). No known exposure to ticks, hasn't spent any problems time outside. Urine was positive so was admitted Diagnosis: Stroke: Yes Modified Chanell Scale: No Symptoms at All Modified Arthur Scale Score: 0 - Discharge Data Discharge Date: 10/07/18 Discharge Disposition: Home, Self-Care 01 Condition: Stable - Discharge Diagnosis/Problem(s) (1) Pyelonephritis SNOMED Code(s): 16853724 ICD Code: N12 - TUBULO-INTERSTITIAL NEPHRITIS, NOT SPCF ACUTE OR CHRONIC Status: Acute Current Visit: Yes (2) Palliative care status SNOMED Code(s): 655290797 ICD Code: Z51.5 - ENCOUNTER FOR PALLIATIVE CARE Status: Acute Current Visit: Yes (3) BPH (benign prostatic hyperplasia) SNOMED Code(s): 833205256 ICD Code: N40.0 - BENIGN PROSTATIC HYPERPLASIA WITHOUT LOWER URINRY TRACT SYMP Status: Acute Current Visit: Yes - Patient Instructions Diet: Heart Healthy Diet Activity: As Tolerated Driving: May Drive Today Showering/Bathing: May Shower Notify Provider of: Fever, Increased Pain Other/Special Instructions: 1. Recheck with Dr. Arana in 1 week with a UA. - Discharge Plan *PRESCRIPTION DRUG MONITORING PROGRAM REVIEWED*: Not Applicable *COPY OF PRESCRIPTION DRUG MONITORING REPORT IN PATIENT BRIGIDO: Not Applicable Prescriptions/Med Rec: Finasteride [Proscar] 5 mg PO DAILY #30 tablet Levofloxacin [Levaquin] 750 mg PO Q48H #5 tablet Tamsulosin [Flomax] 0.4 mg PO PCBREAKFAST #30 cap.er Home Medications: Home Meds Aspirin [Ecotrin EC] 81 mg PO DAILY 10/04/18 [History] Metoprolol Tartrate [Lopressor] 12.5 mg PO BID 10/04/18 [History] Multivitamin [Multivitamins] 1 each PO DAILY 10/04/18 [History] Rosuvastatin [Crestor] 10 mg PO BEDTIME 10/04/18 [History] Finasteride [Proscar] 5 mg PO DAILY #30 tablet 10/07/18 [Rx] Levofloxacin [Levaquin] 750 mg PO Q48H #5 tablet 10/07/18 [Rx] Tamsulosin [Flomax] 0.4 mg PO PCBREAKFAST #30 cap.er 10/07/18 [Rx] - Discharge Summary/Plan Comment DC Time >30 min.: No - Patient Data Vitals - Most Recent: Last Vital Signs Temp 99.4 F 10/07/18 01:00 Pulse 92 10/07/18 01:00 Resp 18 10/07/18 01:00 BP 130/70 10/07/18 01:00 Pulse Ox 93 L 10/07/18 01:00 Weight - Most Recent: 199 lb 3.2 oz Lab Results - Last 24 hrs: Laboratory Results - last 24 hr 10/06/18 Range/Units 08:38 WBC 7.9 (4.5-12.0) X10-3/uL RBC 3.99 L (4.30-5.75) x10(6)uL Hgb 12.3 L (13.5-17.8) g/dL Hct 36.4 (30.0-51.3) % MCV 91.1 (80-96) fL MCH 30.7 (27.7-33.6) pg MCHC 33.7 (32.2-35.4) g/dL RDW 13.4 (11.5-15.5) % Plt Count 165 (125-369) X10(3)uL MPV 8.2 (7.4-10.4) fL Neut % (Auto) 80.4 (46-82) % Lymph % (Auto) 9.8 L (13-37) % Hall % (Auto) 8.9 (4-12) % Eos % (Auto) 1 (1.0-5.0) % Baso % (Auto) 0 (0-2) % Neut # (Auto) 6.3 (1.6-8.3) # Lymph # (Auto) 0.8 (0.6-5.0) # Hall # (Auto) 0.7 (0.0-1.3) # Eos # (Auto) 0.1 (0.0-0.8) # Baso # (Auto) 0.0 (0.0-0.2) # WHITNEY Results - Last 24 hrs: Microbiology 10/04/18 18:29 Urine Culture - Final Urine, Voided Escherichia Coli 10/04/18 18:35 Aerobic Blood Culture - Preliminary Blood - Venous - Lab Draw NO GROWTH AFTER 2 DAYS Anaerobic Blood Culture - Preliminary NO GROWTH AFTER 2 DAYS 10/04/18 18:30 Aerobic Blood Culture - Preliminary Blood - Venous NO GROWTH AFTER 2 DAYS Anaerobic Blood Culture - Preliminary NO GROWTH AFTER 2 DAYS Med Orders - Current: Current Medications Acetaminophen (Tylenol) 650 mg PO Q4H PRN PRN Reason: pain, fever Last Admin: 10/06/18 02:42 Dose: 650 mg Ceftriaxone Sodium (Rocephin) 1 gm IVPUSH Q24H ARIELLE Last Admin: 10/06/18 10:09 Dose: 1 gm Enoxaparin Sodium (Lovenox) 40 mg SUBCUT DAILY [facility] [place] Last Admin: 10/06/18 10:04 Dose: 40 mg Finasteride (Proscar) 5 mg PO BEDTIME [facility] [place] Last Admin: 10/06/18 21:14 Dose: 5 mg Hydroxyzine HCl (Atarax) 25 mg PO BEDTIME PRN PRN Reason: Insomnia Last Admin: 10/06/18 02:42 Dose: 25 mg Metoprolol Tartrate (Lopressor) 12.5 mg PO BID [facility] [place] Last Admin: 10/06/18 21:14 Dose: 12.5 mg Sodium Chloride (Saline Flush) 10 ml FLUSH ASDIRECTED PRN PRN Reason: Keep Vein Open Last Admin: 10/06/18 02:04 Dose: 10 ml Tamsulosin HCl (Flomax) 0.4 mg PO PCBREAKFAST [facility] [place] Last Admin: 10/06/18 10:01 Dose: 0.4 mg Discontinued Medications Acetaminophen (Tylenol Extra Strength) 1,000 mg PO ONETIME ONE Stop: 10/04/18 18:31 Last Admin: 10/04/18 18:40 Dose: 1,000 mg Ceftriaxone Sodium (Rocephin) 1 gm IVPUSH Q24H [facility] [place] Last Admin: 10/04/18 19:16 Dose: 1 gm Cefazolin Sodium/Dextrose 2 gm (/ Premix) 50 mls @ 100 mls/hr IV Q8H [facility] [place] Last Admin: 10/06/18 02:04 Dose: 100 mls/hr Metoprolol Tartrate (Lopressor) 12.5 mg PO BID STA Stop: 10/04/18 21:19 Last Admin: 10/04/18 21:58 Dose: Not Given Metoprolol Tartrate (Lopressor) 12.5 mg PO ONETIME ONE Stop: 10/04/18 21:46 Last Admin: 10/04/18 21:50 Dose: 12.5 mg Rosuvastatin Calcium (Crestor) 10 mg PO BEDTIME [facility] [place] Rosuvastatin Calcium (Crestor) 10 mg PO ONETIME ONE Stop: 10/04/18 21:21 Last Admin: 10/04/18 21:58 Dose: Not Given Rosuvastatin Calcium (Crestor) 10 mg PO ONETIME ONE Stop: 10/04/18 21:46 Last Admin: 10/04/18 21:50 Dose: 10 mg
[2018-10-07] MEDS: Tamsulosin 0.4 MG Cap.ER PO SCH (09:14)
[2018-10-07] MEDS: Enoxaparin 40 MG/0.4 ML Syringe SUBCUT SCH (09:14)
[2018-10-07] MEDS: Metoprolol Tartrate 25 MG Tab PO SCH (09:14)
[2018-10-07 09:15] VITALS: BP 132/70
[2018-10-07] MEDS: cefTRIAXone 1 GM Vial IVPUSH SCH (10:27)
== END 2018-10-07 10:25 | disposition home or self-care (01) | DRG 690 ==
LOC: FB.ED 18:12 → FB.MS 19:33 → OBSVTOIN 10-05 09:54
PROVIDERS: ADMIT Emergency Medicine; ATTEND Family Medicine
DX: R82.90 Unspecified abnormal findings in urine (principal); R50.9 Fever, unspecified; R29.6 Repeated falls; R42 Dizziness and giddiness; N12 Tubulo-interstitial nephritis, not specified as acute or chronic; B96.20 Unspecified Escherichia coli [E. coli] as the cause of diseases classified elsewhere; I10 Essential (primary) hypertension; E78.5 Hyperlipidemia, unspecified; M19.90 Unspecified osteoarthritis, unspecified site; R35.0 Frequency of micturition; N40.0 Benign prostatic hyperplasia without lower urinary tract symptoms; Z51.5 Encounter for palliative care; Z91.030 Bee allergy status; Z79.82 Long term (current) use of aspirin
CPT/HCPCS: 36415; 74176; 80053; 81001; 83605; 83735; 85025; 86140; 87040 ×2; 87086; 87088; 87186; 93005; 96365; 96374; 96375; 99285; A9270 ×4; G0378 ×2; J0690; J0696; 71046; 96372; J1650